=== PATIENT | female | born 1990 | race African-American/Black ===

== ENCOUNTER 2018-11-02 09:41 | Outpatient (CLI) ==
[~2018-11-02] VITALS: Ht 157.5 cm; Wt 85.9 kg
[2018-11-02 10:04] VITALS: BP 114/68
[2018-11-02] MEDS ORDERED: FLINCHW5 PO (10:08)
== END 2018-11-02 11:05 | disposition home or self-care (01) ==
LOC: M LDO 09:41
PROVIDERS: ATTEND Obstetrics & Gynecology
DX: O47.9 False labor, unspecified (principal); Z3A.00 Weeks of gestation of pregnancy not specified
CPT/HCPCS: 59025; G0378; G0463

== ENCOUNTER 2018-11-13 08:38 | Outpatient (CLI) | payer OTHER ==
[~2018-11-13 08:38] MED LIST: FLINCHW5 PO
[2018-11-13 08:57] VITALS: BP 116/64
== END 2018-11-13 09:40 | disposition home or self-care (01) ==
LOC: M LDO 08:38
PROVIDERS: ATTEND Obstetrics & Gynecology
DX: O26.853 Spotting complicating pregnancy, third trimester (principal); O47.1 False labor at or after 37 completed weeks of gestation; Z3A.40 40 weeks gestation of pregnancy
CPT/HCPCS: 59025; G0378; G0463

== ENCOUNTER 2018-11-20 07:56 | Inpatient (IN) | payer OTHER ==
[~2018-11-20] VITALS: Ht 157.5 cm; Wt 90.4 kg
[2018-11-20] VITALS (15 sets, daily range): BP systolic 107–180; BP diastolic 56–89
[2018-11-20] MEDS ORDERED: LR 1,000 ML IV SCH ×2 (09:43→14:18)
[2018-11-20 09:59] LABS: HEMATOCRIT 31.8 % (36.0-47.0); HEMOGLOBIN 11.3 g/dl (12.0-15.5); MEAN CORPUSCULAR HEMOGLOBIN 32.7 pg (27.0-33.0); MEAN CORPUSCULAR HGB CONC 35.5 g/dl (32.0-36.5); MEAN CORPUSCULAR VOLUME 91.9 fl (80.0-96.0); PLATELET COUNT, AUTOMATED 245 10^3/uL (150-450); RED BLOOD COUNT 3.46 10^6/uL (4.00-5.40); WHITE BLOOD COUNT 9.7 10^3/uL (4.0-10.0)
[2018-11-20] MEDS: LR 1,000 ML IV SCH ×2 (10:25→18:00)
[2018-11-20] MEDS ORDERED: miSOPROStol 50 MCG 1/2 TAB (S0191) PO ONE (10:30)
[2018-11-20] MEDS ORDERED: OXYTOCIN 30 UNITS IN 0.9% NaCl 500ML IV BAG (J2590) As Ordered ONE (13:43)
[2018-11-20 14:08] LABS: CORD GAS ABE V -5.1; CORD GAS HCO3 V 20.6 MEQ/L; CORD GAS O2 SAT V 77.8 %; CORD GAS PCO2 V 40.6 mmHg; CORD GAS PH V 7.323 UNITS; CORD GAS PO2 V 37.8 mmHg; CORD GAS SBC V 19.9 MEQ/L; CORD GAS TCO2 V 21.8 MEQ/L
[2018-11-20 14:10] LABS: CORD GAS ABE A -8.1; CORD GAS HCO3 A 19.1 MEQ/L; CORD GAS O2 SAT A 34.2 %; CORD GAS PH A 7.237 UNITS; CORD GAS PO2 A 19.5 mmHg; CORD GAS SBC A 16.8 MEQ/L; CORD GAS TCO2 A 20.6 MEQ/L
[2018-11-20] MEDS ORDERED: OXYTOCIN DRIP 30 UNITS in APPROPRIATE DILUENT 1 EA IV SCH (14:18)
[2018-11-20] MEDS ORDERED: DOCUSATE SODIUM 100 MG CAP PO PRN (14:30)
[2018-11-20] MEDS ORDERED: ANUSOL HC CREAM 30GM TOP PRN (14:30)
[2018-11-20] MEDS ORDERED: MOM 30ML SUSPENSION UDC PO PRN (14:30)
[2018-11-20] MEDS ORDERED: DIBUCAINE 1% OINTMENT 30GM TOP PRN (14:30)
[2018-11-20] MEDS ORDERED: IBUPROFEN 600 MG TAB PO PRN (14:30)
[2018-11-20] MEDS ORDERED: RHOGAM 300 MCG (1500 IU) INJ (J2790) IM SCH (14:30)
[2018-11-20] MEDS ORDERED: ACETAMINOPHEN TAB 650MG DOSE (2X325MG) PO PRN (14:30)
[2018-11-20] MEDS ORDERED: OXYTOCIN INJ 10 UNITS/ML VIAL (J2590) IV ONE (14:30)
[2018-11-20] MEDS ORDERED: MEASLES,MUMPS,RUBELLA VACCINE INJ (MMR-II) (90707) SC SCH (14:30)
[2018-11-20] MEDS ORDERED: METHYLERGONOVINE MALEATE 0.2 MG TAB PO PRN (14:30)
--- NOTE | 2018-11-20 14:35 | HPE ---
DATE OF ADMISSION: 11/20/2018 28-year-old 4, para 1, abortio 2, last menstrual period 02/05/2018, estimated date of confinement (EDC) 11/13/2018 at 41 weeks of gestation for induction of labor. PAST HISTORY: January 02, 2009, therapeutic . 2016, 39 weeks, spontaneous vaginal delivery, 6 pounds 13 ounces male. LABORATORIES: B+, HIV negative, hepatitis negative, RPR negative, rubella immune. Varicella immune. Pap normal. Urine negative. Gonorrhea and chlamydia negative. 1-hour glucose 75. Group B streptococcus (GBS) is negative. The rest of the examination unremarkable. Normocephalic, atraumatic. Neck: Full range of motion. Pupils equal and reactive to light. Distal pulses symmetric. No evidence of deep vein thrombosis (DVT), pulmonary embolus, or superficial phlebitis. Chest is clear bilaterally to the bases. No wheezes or rhonchi. No costovertebral angle tenderness. Abdomen is soft. Four quadrant bowel sounds are noted. Symphysis fundus height is appropriate. Cervix is posterior, 2 cm, thick, -3 station, 50% effaced. No vaginal bleeding or discharge. She has no rashes, lesions or pruritus. No arthralgias, myalgias. No complaint joint pain. No complaint cough, wheeze, shortness of breath or dyspnea on exertion. No infections. No bruising or bleeding. Neuro complete. No incontinency, urgency, or frequency. No nausea, vomiting, diarrhea, constipation. No diabetic issues. No abnormal Pap smears. Past medical and surgical unremarkable. Family history is noncontributory. She does not smoke, drink, abuse drugs. She is to a soldier. No domestic violence. She has allergies to LATEX and SULFA. Blood pressure is 135/83, respirations are 18, pulse 79, temperature 97.9. Urine shows pH of 6 and negative. We discussed labor, consent for vaginal delivery, delivery the baby through the vagina with possible assistance of forceps or vacuum device if needed. Discussed that forceps or vacuum device can assist with vaginal delivery when normal pushing efforts cannot achieve delivery on their own or when deliveries are needed in emergency for baby's well-being. Medications may be required to induce or augment labor in order to achieve vaginal delivery. Episiotomy may be required to help baby deliver through the vagina. She may also require repair of any lacerations or tears to the vagina or vulva that may be caused by delivery, in some cases emergencies can arise that require emergency section, delivery so quickly that there may not be time for doing complete consent forms; however, the physician will discuss the indications and contraindications of section. This delivery through the abdomen. An incision on the abdomen will be necessary and probably safer for mom and baby than to continue labor and only performed when clinically indicated. Risks of vaginal delivery include not limited to bleeding, infection, injury to vagina or pelvic structures, injury to baby, damage to uterus, reaction to anesthesia, uterine rupture, risk of hysterectomy for life-threatening bleeding incidences or even , medications used to induce or augment labor may increase risk of infection, uterine tachysystole, uterine rupture and bleeding or heart rate abnormalities, which would cause a need for emergency section. Also there may be a possibility of delayed bleeding. There is increased risk of perineal or vaginal lacerations, risks of injury to bowel and bladder, incontinence. In addition, risk of use of forceps or vacuum include scratches, hematomas on the head and intracranial bleed. The patient verbalized understanding and wishes to proceed. Our option presently is misoprostol orally to ripen the cervix, possibly followed up with Pitocin and Cates bulb as indicated.
[2018-11-20] MEDS: IBUPROFEN 800 MG TAB PO PRN (16:19)
[2018-11-20] MEDS: ACETAMINOPHEN 500 MG TAB PO PRN (17:10)
--- NOTE | 2018-11-20 18:38 | DN ---
DATE: 11/20/2018 DELIVERY NOTE This lady is a 2, para 1, admitted for induction of labor at 41 weeks of gestation. She had one lot of misoprostol, got into good active labor, had a spontaneous rupture of membranes, had full dilatation, had a spontaneous vaginal delivery live female infant, 7 pounds 5 ounces, 3330 grams, scores of 7 and 9 at one and five minutes respectively. Arterial pH was 7.23, base excess -8.1, venous pH 7.32, base excess -5.1. There was a cord around the neck and the body times one. There was terminal meconium at delivery. The placenta delivered spontaneously thereafter. Three-vessel cord, membranes and tissues intact. The vagina, anterior/posterior and lateral worthy were intact. Sphincter was tight. The patient and baby tolerated the procedure well.
[2018-11-21] MEDS: ACETAMINOPHEN 500 MG TAB PO PRN ×2 (00:12→09:09)
[2018-11-21 05:54] VITALS: BP 115/66
[2018-11-21] MEDS ORDERED: PROC1CRE5 TOP (06:16)
[2018-11-21] MEDS ORDERED: COLA100C5 PO (06:16)
[2018-11-21] MEDS ORDERED: ACET-683 PO (06:16)
[2018-11-21] MEDS ORDERED: PRENCHW PO (06:16)
[2018-11-21] MEDS ORDERED: IBUP80TA PO (06:16)
[2018-11-21] MEDS ORDERED: DIBU10OI TOP (06:16)
[2018-11-21] MEDS: IBUPROFEN 800 MG TAB PO PRN (06:21)
[2018-11-21 06:54] LABS: HEMATOCRIT 31.9 % (36.0-47.0); HEMOGLOBIN 10.9 g/dl (12.0-15.5); MEAN CORPUSCULAR HEMOGLOBIN 31.6 pg (27.0-33.0); MEAN CORPUSCULAR HGB CONC 34.2 g/dl (32.0-36.5); MEAN CORPUSCULAR VOLUME 92.5 fl (80.0-96.0); PLATELET COUNT, AUTOMATED 208 10^3/uL (150-450); RED BLOOD COUNT 3.45 10^6/uL (4.00-5.40)
[2018-11-21] MEDS ORDERED: PRENATAL VITAMINS CHEWABLE TABLET PO SCH (09:00)
--- NOTE | 2018-11-21 15:33 | DSES ---
DATE OF ADMISSION: 11/20/2018 DATE OF DISCHARGE: A 28-year-old 4, now para 2 admitted for induction of labor at 41 weeks of gestation, had a spontaneous vaginal delivery of a live female , 7 pounds, 5 ounces, 3330 grams, scores of 7 and 9 at one and five minutes respectfully. Cord around the body and the neck times one. Arterial pH 7.23, base excess -8.1, venous pH 7.32, base excess -5.1. Her admitting hemoglobin was 11.3, hematocrit 31.8 and platelets are 245. Her vital signs on discharge: Her blood pressure is 115/66, respirations 16, pulse 67, and temperature is 98.3. We discussed phlebitis, cystitis, mastitis, endometritis and cellulitis, diet, exercise, pain management, perineal, breast and wound care. The rest of the examination is unremarkable. Normocephalic, atraumatic. Neck: Full range of motion. Pupils equal and reactive to light. Distal pulses are symmetric. No evidence of deep vein thrombosis (DVT), pulmonary embolism (PE) or superficial phlebitis. Chest is clear bilaterally to bases. No wheezes or rhonchi. No costovertebral angle (CVA) tenderness. Abdomen is soft. Uterus two below. Four quadrant bowel sounds are noted. Perineum is intact. The patient is presently breast-feeding and doing well. The rest of the examination is unremarkable. In summary, we have a late term gestation, delivered a live female infant, discharged. Followup in six weeks' time to the office. At which time, control will be discussed. The patient was discharged and dispensed with medications.
== END 2018-11-21 15:40 | disposition home or self-care (01) | DRG 807 ==
LOC: M LDI 07:56 → M OBS 16:13
PROVIDERS: ADMIT Obstetrics & Gynecology; ATTEND Obstetrics & Gynecology
PROC: 10E0XZZ Delivery of Products of Conception, External Approach (ICD-10-PCS; principal; 2018-11-20)
PROC: 3E0P7GC Introduction of Other Therapeutic Substance into Female Reproductive, Via Natural or Artificial Opening (ICD-10-PCS; 2018-11-20)
DX: O48.0 Post-term pregnancy (principal); Z37.0 Single live birth; Z3A.41 41 weeks gestation of pregnancy; O69.81X0 Labor and delivery complicated by cord around neck, without compression, not applicable or unspecified; O69.82X0 Labor and delivery complicated by other cord entanglement, without compression, not applicable or unspecified